=== PATIENT | female | born 1960 | race Caucasian/White ===

== ENCOUNTER 2017-02-10 06:37 | Day surgery (SDC) | payer MEDICAID ==
[2017-02-10] MEDS ORDERED: Lactated Ringers 1,000 ML IV SCH (07:00)
[2017-02-10] MEDS ORDERED: fentaNYL 100 MCG/2 ML SDV ONE (07:14)
[2017-02-10] MEDS ORDERED: Propofol 200 MG/20 ML SDV ONE (07:14)
[2017-02-10] MEDS ORDERED: Midazolam 1 MG/ML 2 ML SDV ONE (07:14)
[2017-02-10 09:28] VITALS: BP 86/58
--- NOTE | 2017-02-10 13:09 | OR ---
DATE OF PROCEDURE: 02/10/2017 PREOPERATIVE DIAGNOSIS: Colon cancer screening. POSTOPERATIVE DIAGNOSIS: Unremarkable colonoscopy. PROCEDURE: Colonoscopy to the cecum. ANESTHESIA: IV anesthesia with monitored anesthesia care. INDICATION: This 56-year-old white female is referred for a screening colonoscopy. Her last colonoscopic exam she says was done 10 years ago. I counseled her for the procedure including risks and alternatives, and she gave her informed consent to proceed. PROCEDURE IN DETAIL: The patient was placed in a left lateral decubitus position. IV anesthesia was administered by the Anesthesia Service. Time-out was held. A rectal exam was performed, which was unremarkable. The flexible video Olympus colonoscope was introduced through her anus, up her rectum, and out her colon, all the way to the cecum. Once the cecum was reached, the scope was slowly withdrawn, examining the mucosa throughout. No mucosal abnormalities were noted. The scope was retroflexed in the rectum with the distal rectum appearing unremarkable. The scope was straightened and removed. She tolerated the procedure well. Brock Kim MD /[id number]
== END 2017-02-10 10:19 | disposition home or self-care (01) ==
LOC: JP.SDS 06:37
PROVIDERS: ATTEND Surgery
DX: Z12.11 Encounter for screening for malignant neoplasm of colon (principal); J45.909 Unspecified asthma, uncomplicated; K21.9 Gastro-esophageal reflux disease without esophagitis; E03.9 Hypothyroidism, unspecified; Z88.2 Allergy status to sulfonamides; Z88.8 Allergy status to other drugs, medicaments and biological substances; Z91.09 Other allergy status, other than to drugs and biological substances; Z98.890 Other specified postprocedural states
CPT/HCPCS: 45378; J2250; J2704; J3010; J7120

== ENCOUNTER 2021-04-13 20:59 | Emergency (ER) | payer MEDICAID ==
[2021-04-13 21:15] VITALS: BP 100/60; PULSE 90
--- NOTE | 2021-04-13 22:12 | EDM.PDOC ---
ED HPI GENERAL MEDICAL PROBLEM - General Chief Complaint: General Stated Complaint: COUGH, FEVER, HEADACHE, MUSCLEACHE, NAUSEA Time Seen by Provider: 04/13/21 21:04 Source of Information: Reports: Patient History Limitations: Reports: No Limitations - History of Present Illness INITIAL COMMENTS - FREE TEXT/NARRATIVE: [id number] female presenting to the ED with concerns of COVID-19. Patient has history significant for asthma and is on fluconazole and inhaler. She is not vaccinated for COVID-19 but started having symptoms that began with chest heaviness 2 days ago. She also has a headache, body aches, joint pain, shortness of breath and a cough, decreased appetite, nausea without vomiting and generalized abdominal pain. She has been able to drink soups and broths. - Related Data Allergies Allergy/AdvReac Type Severity Reaction Status Date / Time carbamazepine Allergy Cannot Verified 08/06/18 08:52 Remember phenytoin Allergy Cannot Verified 08/06/18 08:52 Remember Sulfa (Sulfonamide Allergy Cannot Verified 08/06/18 08:52 Antibiotics) Remember ENVIRONMENTAL Allergy Cannot Uncoded 08/06/18 08:52 Remember Home Meds: Home Meds SUMAtriptan [Imitrex] 50 - 100 mg PO ASDIRECTED PRN 02/06/17 [History] Calcium Carbonate [Calcium] 600 mg PO DAILY 02/10/17 [History] Melatonin 3 mg PO BEDTIME PRN 02/10/17 [History] Multivitamin with Minerals [Multiple Vitamin] 1 tab PO DAILY 02/10/17 [History] Vitamin B Complex [B Complex] 1 tab PO DAILY 02/10/17 [History] Vitamin E 400 unit PO DAILY 02/10/17 [History] Fish Oil/[place]-3 Fatty Acids [Fish Oil] 3,000 mg PO DAILY 08/05/18 [History] Magnesium Oxide 1 tab PO DAILY 08/05/18 [History] Montelukast [Singulair] 1 tab PO BEDTIME 08/05/18 [History] Omeprazole 1 tab PO DAILY 08/05/18 [History] Thyroid,Pork [[place] Thyroid] 1 tab PO DAILY 08/05/18 [History] Ubidecarenone [Coenzyme Q-10] 1 tab PO DAILY 08/05/18 [History] resveratroL [Resveratrol] 1 cap PO DAILY 08/05/18 [History] traZODone 1 tab PO BEDTIME 08/05/18 [History] Andrographis 2 tab PO TID 08/06/18 [History] Cat's Claw 1,200 mg PO TID 08/06/18 [History] Past Medical History HEENT History: Reports: Impaired Vision Other HEENT History: wear glasses Cardiovascular History: Reports: Other (See Below) Other Cardiovascular History: pericaridits Respiratory History: Reports: Asthma, Sleep Apnea Gastrointestinal History: Reports: Gastritis [employer] History: Reports: Endometrial Ablation Musculoskeletal History: Reports: Back Pain, Chronic, Osteoarthritis, Other (See Below) Other Musculoskeletal History: "chronic lymes disease" Neurological History: Reports: Migraines, Seizure Endocrine/Metabolic History: Reports: Hypothyroidism Hematologic History: Reports: Iron Deficiency - Infectious Disease History Infectious Disease History: Reports: Chicken Pox, Meningitis, Novel Coronavirus - Past Surgical History HEENT Surgical History: Reports: Naso-Sinus Surgery, Tonsillectomy GI Surgical History: Reports: Colonoscopy Female Surgical History: Reports: Breast Biopsy, Endometrial Ablation, Other (See Below) Other Female Surgeries/Procedures: fibrocystic disease in breasts Neurological Surgical History: Reports: C-Spine Other Neurological Surgeries/Procedures: fusion c6-7 Musculoskeletal Surgical History: Reports: Arthroscopic Knee, Carpal Tunnel, Other (See Below) Other Musculoskeletal Surgeries/Procedures:: x4 trigger finger surgeries Social & Family History - Family History Family Medical History: No Pertinent Family History - Tobacco Use Tobacco Use Status *Q: Never Tobacco User - Caffeine Use Caffeine Use: Reports: None - Recreational Drug Use Recreational Drug Use: No ED ROS GENERAL - Review of Systems Review Of Systems: See Below Constitutional: Reports: Fever, Chills, Malaise, Weakness, Decreased Appetite HEENT: Reports: Rhinitis Respiratory: Reports: Shortness of Breath, Cough, Sputum (Clear sputum) Cardiovascular: Reports: Chest Pain (Central chest heaviness) Endocrine: Reports: Fatigue GI/Abdominal: Reports: Abdominal Pain, Decreased Appetite, Nausea : Reports: No Symptoms Musculoskeletal: Reports: Joint Pain, Muscle Pain Neurological: Reports: Headache Psychiatric: Reports: Anxiety Hematologic/Lymphatic: Reports: No Symptoms Immunologic: Reports: Other (Patient has a history significant for asthma) ED EXAM, GENERAL - Physical Exam Exam: See Below Exam Limited By: No Limitations General Appearance: Alert, No Apparent Distress, Anxious Eye Exam: Bilateral Eye: EOMI, PERRL Throat/Mouth: Normal Inspection, Normal Oropharynx, Normal Voice, No Airway Compromise Head: Atraumatic, Normocephalic Neck: Normal Inspection, Supple. No: Lymphadenopathy (R), Lymphadenopathy (L) Respiratory/Chest: No Respiratory Distress, No Accessory Muscle Use, Rhonchi (Scattered rhonchi in the bases). No: Crackles, Rales, Wheezing, Retractions Cardiovascular: Normal Peripheral Pulses, Regular Rate, Rhythm, No Murmur Peripheral Pulses: 2+: Radial (L), Radial (R) Back Exam: Normal Inspection, Full Range of Motion Extremities: Normal Inspection Neurological: Alert, Oriented, Normal Cognition, No Motor/Sensory Deficits Psychiatric: Normal Affect Skin Exam: Warm, Dry Course - Vital Signs Last Recorded V/S: Last Vital Signs Temp 36.7 C 04/13/21 21:26 Pulse 90 04/13/21 21:26 Resp 16 04/13/21 21:26 BP 100/60 04/13/21 21:26 Pulse Ox 96 04/13/21 21:26 - Orders/Labs/Meds Orders: Active Orders 24 hr Category Date Time Status Chest 1V Frontal [CR] Stat Exams 04/13/21 21:11 Taken LACTIC ACID [CHEM] Stat Lab 04/13/21 21:28 Received Labs: Laboratory Tests 04/13/21 04/13/21 04/13/21 Range/Units 21:15 21:28 21:28 WBC 7.5 (4.5-11.0) K/uL RBC 4.54 (3.30-5.50) M/uL Hgb 13.3 (12.0-15.0) g/dL Hct 41.3 (36.0-48.0) % MCV 91 (80-98) fL MCH 29 (27-31) pg MCHC 32 (32-36) % Plt Count 195 (150-400) K/uL Neut % (Auto) 59.8 (36-66) % Lymph % (Auto) 24.1 (24-44) % [place] % (Auto) 15.5 H (2-6) % Eos % (Auto) 0.3 L (2-4) % Baso % (Auto) 0.3 (0-1) % D-Dimer, Quantitative 922.87 H (0.0-500.0) ng/mL Sodium (140-148) mmol/L Potassium (3.6-5.2) mmol/L Chloride (100-108) mmol/L Carbon Dioxide (21-32) mmol/L Anion Gap (5.0-14.0) mmol/L BUN (7-18) mg/dL Creatinine (0.6-1.0) mg/dL Est Cr Clr Drug Dosing mL/min Estimated GFR (MDRD) (>60) Glucose (74-106) mg/dL Calcium (8.5-10.1) mg/dL Total Bilirubin (0.2-1.0) mg/dL AST (15-37) U/L ALT (12-78) U/L Alkaline Phosphatase (46-116) U/L Lactate Dehydrogenase (82-234) U/L C-Reactive Protein (0.0-0.3) mg/dL Total Protein (6.4-8.2) g/dL Albumin (3.4-5.0) g/dL Globulin (2.3-3.5) g/dL Albumin/Globulin Ratio (1.2-2.2) Procalcitonin ng/mL SARS CoV-2 RNA Rapid TELMA Positive H 04/13/21 04/13/21 Range/Units 21:28 21:28 WBC (4.5-11.0) K/uL RBC (3.30-5.50) M/uL Hgb (12.0-15.0) g/dL Hct (36.0-48.0) % MCV (80-98) fL MCH (27-31) pg MCHC (32-36) % Plt Count (150-400) K/uL Neut % (Auto) (36-66) % Lymph % (Auto) (24-44) % [place] % (Auto) (2-6) % Eos % (Auto) (2-4) % Baso % (Auto) (0-1) % D-Dimer, Quantitative (0.0-500.0) ng/mL Sodium 136 L (140-148) mmol/L Potassium 3.7 (3.6-5.2) mmol/L Chloride 97 L (100-108) mmol/L Carbon Dioxide 29 (21-32) mmol/L Anion Gap 13.7 (5.0-14.0) mmol/L BUN 13 (7-18) mg/dL Creatinine 1.0 (0.6-1.0) mg/dL Est Cr Clr Drug Dosing 59.26 mL/min Estimated GFR (MDRD) 57 L (>60) Glucose 103 (74-106) mg/dL Calcium 8.5 (8.5-10.1) mg/dL Total Bilirubin 0.3 (0.2-1.0) mg/dL AST 23 (15-37) U/L ALT 26 (12-78) U/L Alkaline Phosphatase 59 (46-116) U/L Lactate Dehydrogenase 165 (82-234) U/L C-Reactive Protein 0.51 H (0.0-0.3) mg/dL Total Protein 7.6 (6.4-8.2) g/dL Albumin 4.0 (3.4-5.0) g/dL Globulin 3.6 H (2.3-3.5) g/dL Albumin/Globulin Ratio 1.1 L (1.2-2.2) Procalcitonin < 0.05 ng/mL SARS CoV-2 RNA Rapid TELMA Departure - Departure Time of Disposition: 22:08 Disposition: Home, Self-Care 01 Clinical Impression: Pneumonia due to COVID-19 virus, Nausea - Discharge Information Instructions: COVID-19: What to Do If You Are Sick- [facility] (08/30/2020), COVID-19: How to Protect Yourself and Others - [facility], 10 Things You Can Do to Manage Your COVID-19 Symptoms at Home - [facility] (12/29/2020) Referrals: Betsy Chavez PA [Primary Care Provider] - Care Plan Goals: Your test for COVID-19 is positive. Your chest x-ray shows a few small infiltrates consistent with a viral pneumonia due to COVID-19. Your CBC and comprehensive metabolic panel were normal. You have mild inflammation noted on your C-reactive protein and elevation of your D-dimer consistent with a Covid pneumonia. Other indicators like ferritin and procalcitonin are not elevated which is a good sign. I have placed an order for you to receive the monoclonal antibody therapy on Friday. They will contact you in the morning to give you a time to come in. I would like you to quarantine for the next 10 days with the exception of coming in for the infusion on Friday. Should you become sufficiently short of breath that you feel that you need oxygen please return to the ED for reevaluation. Unfortunately this is a snapshot in time and I have no way to predict whether this will get better, stay the same, or get worse but we are always happy to reevaluate you. I have also sent a prescription to the [facility] for Zofran to help with your nausea so that you can stay hydrated. Sepsis Event Note (ED) - Evaluation Sepsis Screening Result: No Definite Risk - Focused Exam Vital Signs: Vital Signs Temp Pulse Resp BP Pulse Ox 04/13/21 21:26 36.7 C 90 16 100/60 96 04/13/21 21:08 36.7 C 90 16 100/60 96 - Problem List & Annotations (1) Pneumonia due to COVID-19 virus SNOMED Code(s): 369427660740196711 Code(s): U07.1 - COVID-19; J12.82 - PNEUMONIA DUE TO CORONAVIRUS DISEASE 2018 Status: Acute Priority: High Current Visit: Yes (2) Nausea SNOMED Code(s): 831209679 Code(s): R11.0 - NAUSEA Status: Acute Priority: Medium Current Visit: Yes - Problem List Review Problem List Initiated/Reviewed/Updated: Yes - My Orders Last 24 Hours: My Active Orders 04/13/21 21:11 Chest 1V Frontal [CR] Stat 04/13/21 21:28 LACTIC ACID [CHEM] Stat - Assessment/Plan Last 24 Hours: My Active Orders 04/13/21 21:11 Chest 1V Frontal [CR] Stat 04/13/21 21:28 LACTIC ACID [CHEM] Stat
--- NOTE | 2021-04-16 09:17 | CR ---
CHEST: Portable 04/13/2021 at 9:35 PM CLINICAL HISTORY:Dyspnea COMPARISON:CT 06/20/2020 FINDINGS: Heart size and pulmonary vascularity are normal. Lungs are mildly hyperaerated. No infiltrate effusion or pneumothorax seen. Impression: No acute cardiopulmonary process
== END 2021-04-13 22:30 | disposition home or self-care (01) ==
LOC: JP.ED 20:59
DX: U07.1 COVID-19 (principal); J12.82 Pneumonia due to coronavirus disease 2019; R11.0 Nausea; E03.9 Hypothyroidism, unspecified; Z88.2 Allergy status to sulfonamides; Z88.8 Allergy status to other drugs, medicaments and biological substances; Z79.899 Other long term (current) drug therapy
CPT/HCPCS: 36415; 71045; 71045-26; 80053; 83605; 83615; 84145; 85025; 85379; 86140; 99283-25; U0002

== ENCOUNTER 2023-09-27 00:28 | Emergency (ER) | payer MEDICAID ==
[2023-09-27] MEDS: Morphine 10 MG/ML Syringe IM ONE (01:19)
[2023-09-27] MEDS ORDERED: Sodium Chloride 0.9% 10 ML Syringe FLUSH PRN (01:58)
[2023-09-27] MEDS: HYDROmorphone 1 MG/ML Syringe IVPUSH ONE (02:04)
[2023-09-27 02:39] VITALS: PULSE 78
[2023-09-27 03:36] VITALS: BP 122/72
== END 2023-09-27 04:14 | disposition swing bed (61) ==
LOC: JP.ED 00:28
DX: G54.2 Cervical root disorders, not elsewhere classified (principal); J45.909 Unspecified asthma, uncomplicated; E03.9 Hypothyroidism, unspecified; Z88.8 Allergy status to other drugs, medicaments and biological substances; Z88.2 Allergy status to sulfonamides; Z79.899 Other long term (current) drug therapy; Z86.19 Personal history of other infectious and parasitic diseases; Z86.16 Personal history of COVID-19
CPT/HCPCS: 72040; 96372; 96374; 99284; J1170; J2270; 99285